=== PATIENT | male | born 1995 | race Caucasian/White ===

== ENCOUNTER 2020-06-19 04:20 | Emergency (ER) | payer MEDICAID ==
[~2020-06-19] VITALS: Ht 167.6 cm; Wt 68.0 kg
[2020-06-19 04:44] VITALS: BP 142/82
[2020-06-19 04:57] VITALS: BP 142/82
== END 2020-06-19 05:25 | disposition home or self-care (01) ==
LOC: MED 04:20
DX: R03.0 Elevated blood-pressure reading, without diagnosis of hypertension (principal); F17.200 Nicotine dependence, unspecified, uncomplicated; Z71.6 Tobacco abuse counseling; Z20.828 Contact with and (suspected) exposure to other viral communicable diseases
CPT/HCPCS: 99283; U0003

== ENCOUNTER 2020-07-09 14:30 | Emergency (ER) | payer MEDICAID ==
[~2020-07-09] VITALS: Ht 170.2 cm; Wt 70.8 kg
[2020-07-09 14:38] VITALS: BP 126/72
[2020-07-09 16:15] VITALS: BP 126/72
--- NOTE | 2020-07-09 16:16 | NUR ---
Patient discharged with v/s stable. Written and verbal after care instructions given and explained. Patient alert, oriented and verbalized understanding of instructions. Ambulatory with steady gait. All questions addressed prior to discharge. ID band removed. Patient advised to follow up with PMD. Rx of ROBAXIN AND NAPROSYN given. Patient educated on indication of medication including possible reaction and side effects. Opportunity to ask questions provided and answered.
== END 2020-07-09 16:16 | disposition home or self-care (01) ==
LOC: MED 14:30
DX: M54.6 Pain in thoracic spine (principal); Z48.00 Encounter for change or removal of nonsurgical wound dressing
CPT/HCPCS: 99283

== ENCOUNTER 2020-10-30 09:25 | Emergency (ER) | payer MEDICAID, OTHER ==
[~2020-10-30] VITALS: Ht 170.2 cm; Wt 64.4 kg
[2020-10-30 09:29] VITALS: BP 123/77
--- NOTE | 2020-10-30 09:31 | NUR ---
Patient ambulated to bed 11 with steady/even gait.
--- NOTE | 2020-10-30 09:35 | NUR ---
25 y/o M coming in from home with c/c cough x 1 week. 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 Patient states relief with rest. Patient describes cough as productive, producing mucus in the morning. Pt reports taking Nyquil PM with relief. Patient states occassional substernal chest pain after coughing. Denies abdominal pain, shortness of breath, dizziness, headache, fever/chills, cold-like symptoms, N/V, loss of sense of taste or smell. Pt admits to marijuana use and smokes 1-2 cigarettes/day. Denies exposure to + Covid people. Lung sounds CTA. Pt placed onto blood pressure cuff, pulse ox. Resiprations even/unlabored; SpO2 100% on room air. Bed locked in lowest position, side rails x 1, call light in reach. PMH/Meds: Denies NKA Denies Sx
--- NOTE | 2020-10-30 09:52 | NUR ---
Novel Covid swab collected, walked to lab and handed to bhavana Torres tech.
--- NOTE | 2020-10-30 09:58 | NUR ---
Note undone in EDM - 10/30/20 at 1001 by [facility] 25 y/o M coming in from home with c/c cough x 1 week. 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 Patient states relief with rest. Patient describes cough as productive, producing mucus in the morning. Pt reports taking Nyquil PM with relief. Patient states occassional substernal chest pain after coughing. Denies abdominal pain, shortness of breath, dizziness, headache, fever/chills, cold-like symptoms, N/V, loss of sense of taste or smell. Pt admits to marijuana use and smokes 1-2 cigarettes/day. Denies exposure to + Covid people. Lung sounds CTA. Pt placed onto blood pressure cuff, pulse ox. Resiprations even/unlabored; SpO2 100% on room air. Bed locked in lowest position, side rails x 1, call light in reach. PMH/Meds: Denies NKA Denies Sx
--- NOTE | 2020-10-30 10:19 | NUR ---
Patient presents awake with both eyes open in semi-fowlers position. Pt remains on blood pressure cuff/pulse ox. Respirations even/unlabored. Bed locked in lowest position, side rails x1, call light in reach.
[2020-10-30 11:14] VITALS: BP 123/77
--- NOTE | 2020-10-30 11:15 | NUR ---
Patient discharged with v/s stable. Written and verbal after care instructions given and explained. Patient alert, oriented and verbalized understanding of instructions. Ambulatory with steady gait. All questions addressed prior to discharge. ID band removed. Patient advised to follow up with PMD. Opportunity to ask questions provided and answered.
== END 2020-10-30 11:15 | disposition home or self-care (01) ==
LOC: MED 09:25
DX: R05 Cough (principal); Z20.822 Contact with and (suspected) exposure to COVID-19
CPT/HCPCS: 71045; 99284; U0003

== ENCOUNTER 2021-01-08 10:40 | Emergency (ER) | payer OTHER ==
[~2021-01-08] VITALS: Ht 170.2 cm; Wt 68.0 kg
[2021-01-08 10:42] VITALS: BP 141/61
--- NOTE | 2021-01-08 10:50 | NUR ---
Patient ambulated to bed 3 with a steady gait.
--- NOTE | 2021-01-08 10:55 | NUR ---
Patient is a 25 y/o male c/c low back pain that began yesterday after lifting a tree trunk. Pain is stabbing and nonradiating; pain is 9/10. Patient denies n/v, blood in stool, fever, chills, dysuria, chest pain or SOB. PMH: none ALLERGIES: NKA RX: none
--- NOTE | 2021-01-08 11:01 | NUR ---
Dr. Booth at the bedside evaluating patient.
--- NOTE | 2021-01-08 11:18 | NUR ---
CALLED PHARMACY, SPOKE TO AGATHA REGARDING LIDODERM PATCH, STATED HW WOULD BRING ONE OVER.
[2021-01-08] MEDS: ACETAMINOPHEN 325 MG TAB PO ONE (11:19)
[2021-01-08] MEDS: KETOROLAC 15 MG/ML VIAL IM ONE (11:20)
[2021-01-08] MEDS ORDERED: IBUP-2213 PO (11:53)
[2021-01-08] MEDS ORDERED: LID5T TP (11:53)
[2021-01-08] MEDS ORDERED: ACET-2619 PO (11:53)
[2021-01-08] MEDS ORDERED: CYCL-711 PO (11:55)
[2021-01-08 12:06] VITALS: BP 141/61
--- NOTE | 2021-01-08 12:06 | NUR ---
Patient discharged with v/s stable. Written and verbal after care instructions given and explained. Patient alert, oriented and verbalized understanding of instructions. Ambulatory with steady gait. All questions addressed prior to discharge. ID band removed. Patient advised to follow up with PMD. Rx of acetaminophen, cyclobenzaprine, ibuprofen, lidoderm 5% patch given. Patient educated on indication of medication including possible reaction and side effects. Opportunity to ask questions provided and answered.
[2021-01-09] MEDS ORDERED: LIDOCAINE 5% 1 EA PATCH TP SCH (09:00)
== END 2021-01-08 12:07 | disposition home or self-care (01) ==
LOC: MED 10:40
DX: S39.012A Strain of muscle, fascia and tendon of lower back, initial encounter (principal); X58.XXXA Exposure to other specified factors, initial encounter; Y93.89 Activity, other specified; Y92.89 Other specified places as the place of occurrence of the external cause; Y99.8 Other external cause status
CPT/HCPCS: 96372; 99283; J1885

== ENCOUNTER 2021-05-13 14:38 | Emergency (ER) | payer OTHER, SELFPAY ==
[~2021-05-13] VITALS: Ht 167.6 cm; Wt 68.0 kg
[~2021-05-13 14:38] MED LIST: ACET-2619 PO; CYCL-711 PO; IBUP-2213 PO; LID5T TP
[2021-05-13 14:45] VITALS: BP 126/72
--- NOTE | 2021-05-13 14:56 | NUR ---
Patient ambulated to bed 02 with steady/even gait.
--- NOTE | 2021-05-13 15:00 | NUR ---
25 y/o M BIB self from home c/o blisters/rash that began at 1100 this morning. 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 Patient reports "burning sensation" to hands, denies any physical exposure to chemicals at work. Also reports headache 8/10 and sore throat. Patient states son was sick 1 week ago with "contagious hand and foot disease," reports taking care of son during his illness. Denies nausea, vomiting, fever, chills, SOB, itchiness. Execedrin @ 1200 and ABX ointment @ 1330 with relief to rash. No redness, warmth, swelling, drainage noted to rash/blisters. Skin pink/warm/dry. PMH/Sx/Meds: Denies NKA
[2021-05-13] MEDS ORDERED: PROM118S5 PO (15:30)
[2021-05-13] MEDS ORDERED: BENZ1LOZ98 PO (15:30)
[2021-05-13] MEDS ORDERED: IBUP-2213 PO (15:30)
[2021-05-13] MEDS ORDERED: IBUPROFEN 600 MG TAB PO ONE (15:30)
[2021-05-13 16:02] VITALS: BP_DIAS 72
--- NOTE | 2021-05-13 16:02 | NUR ---
Patient discharged with v/s stable. Written and verbal after care instructions given and explained. Patient alert, oriented and verbalized understanding of instructions. Ambulatory with steady gait. All questions addressed prior to discharge. ID band removed. Patient advised to follow up with PMD. Rx of Cepacol Sore Throat Lozenge, Ibuprofen, Promethazine-Dm Syrup given. Patient educated on indication of medication including possible reaction and side effects. Opportunity to ask questions provided and answered.
== END 2021-05-13 16:02 | disposition home or self-care (01) ==
LOC: MED 14:38
DX: R21 Rash and other nonspecific skin eruption (principal); Z79.899 Other long term (current) drug therapy
CPT/HCPCS: 99283

== ENCOUNTER 2021-09-21 08:54 | Emergency (ER) | payer OTHER, SELFPAY ==
[~2021-09-21] VITALS: Ht 170.2 cm; Wt 67.6 kg
[~2021-09-21 08:54] MED LIST changes: +BENZ1LOZ98 PO; +PROM118S5 PO
[2021-09-21 09:05] VITALS: BP 151/88
--- NOTE | 2021-09-21 09:34 | NUR ---
EVALUATING PATIENT AT BEDSIDE
[2021-09-21] MEDS ORDERED: PRED20TA5 PO (09:41)
[2021-09-21] MEDS ORDERED: AZIT250T4 PO (09:41)
[2021-09-21] MEDS ORDERED: PSEU120T22 PO (09:41)
[2021-09-21] MEDS ORDERED: IBUP-2213 PO (09:41)
--- NOTE | 2021-09-21 09:46 | NUR ---
25 Y/O MALE C/O COUGH, CONGESTION, AND SORE THROAT X7 DAYS. PT STATES THAT HE HAS A PRODUCTIVE COUGH WITH GREEN/YELLOW MUCUS. PT DENIES EXPOSURE TO ANYONE WITH COVID/SICK. PT IS FULLY VACCINATED AGAINST COVID. PT A/O X4 WITH EVEN AND UNLABORED RESPIRATIONS, SPO2 100% ON RO[place], NO SIGNS OF DISTRESS PMH:DENIES NKDA
[2021-09-21 09:52] VITALS: BP 151/88
--- NOTE | 2021-09-21 09:52 | NUR ---
Patient discharged with v/s stable. Written and verbal after care instructions ABOUT SINITUS given and explained. Patient alert, oriented and verbalized understanding of instructions. Ambulatory with steady gait. All questions addressed prior to discharge. ID band removed. Patient advised to follow up with PMD. Rx of ZITHROMAX, IBUPROFEN, PREDNISONE, SUDAFED given.
== END 2021-09-21 09:52 | disposition home or self-care (01) ==
LOC: MED 08:54
DX: R05.9 Cough, unspecified (principal); J32.0 Chronic maxillary sinusitis; F17.200 Nicotine dependence, unspecified, uncomplicated; Z79.899 Other long term (current) drug therapy
CPT/HCPCS: 99283